=== PATIENT | female | born 1985 | race Caucasian/White ===

== ENCOUNTER 2017-10-25 22:34 | Emergency (ER) | payer MEDICAID ==
[~2017-10-25] VITALS: Ht 162.6 cm; Wt 129.9 kg
[2017-10-25 22:42] VITALS: BP 158/84
--- NOTE | 2017-10-25 22:47 | NUR ---
PT.AMBULATED TO ER BED 4
--- NOTE | 2017-10-25 22:55 | NUR ---
32YO F PATIENT PRESENTS TO ED WITH RIGHT FLANK PAIN X4DAYS WITH INCREASING PAIN THAT DOSE NOT RADIATE . DENIES N/V/D; SKIN IS PINK/WARM/DRY; AAOX4 WITH EVEN AND STEADY GAIT; LUNGS CLEAR BL; HR EVEN AND REGULAR; PT DENIES ANY FEVER, CP, SOB, OR COUGH AT THIS TIME; PATIENT STATES PAIN OF 10/10 AT THIS TIME; VSS; PATIENT POSITIONED FOR COMFORT; HOB ELEVATED; BEDRAILS UP X2; BED DOWN. ER MD MADE AWARE OF PT STATUS.
[2017-10-25] MEDS ORDERED: ONDANSETRON 4 MG/2 ML VIAL IVP ONE (23:00)
[2017-10-25] MEDS ORDERED: MORPHINE SULFATE 4 MG/ML SYR IVP ONE (23:00)
[2017-10-25] MEDS ORDERED: NACL 0.9% 1,000 ML IV ONE (23:00)
[2017-10-25] MEDS ORDERED: KETOROLAC 30 MG/ML VIAL IVP ONE (23:00)
--- NOTE | 2017-10-25 23:20 | NUR ---
PT TAKEN TO CT
[2017-10-25 23:24] LABS: BASOPHILS # (AUTO) 0.1 K/uL (0.00-0.22); BASOPHILS % (AUTO) 0.8 % (0.0-2.0); EOSINOPHILS # (AUTO) 0.3 K/uL (0-0.4); EOSINOPHILS % (AUTO) 3.2 % (0.0-4.0); HEMATOCRIT 36.4 % (36-48); HEMOGLOBIN 12.1 g/dL (12.0-16.0); LYMPHOCYTES # (AUTO) 2.2 K/uL (2.5-16.5); LYMPHOCYTES % (AUTO) 28.5 % (20.5-51.1); MEAN CORPUSCULAR HEMOGLOBIN 29 pg (27-31); MEAN CORPUSCULAR HGB CONC 33 g/dL (33-37); MEAN CORPUSCULAR VOLUME 85.7 fL (80-94); MONOCYTES # (AUTO) 0.7 K/uL (0.8-1.0); MONOCYTES % (AUTO) 9.5 % (1.7-9.3); NEUTROPHILS # (AUTO) 4.5 K/uL (1.8-7.7); PLATELET COUNT (AUTO) 240 K/uL (140-450); RED BLOOD CELL COUNT(AUTO) 4.25 MIL/uL (4.20-5.40); RED CELL DISTRIBUTION WIDTH 14.9 % (11.6-13.7); WHITE BLOOD COUNT (AUTO) 7.8 K/uL (4.8-10.8)
[2017-10-25 23:27] LABS: APPEARANCE,URINE CLEAR (CLEAR); BILIRUBIN,URINE NEGATIVE (NEGATIVE); BLOOD, URINE NEGATIVE (NEGATIVE); COLOR,URINE YELLOW (YELLOW); LEUKOCYTE ESTERASE ,URINE TRACE (NEGATIVE); NITRITE, URINE NEGATIVE (NEGATIVE); UGLUCOSE 2+ (NEGATIVE)
--- NOTE | 2017-10-25 23:31 | NUR ---
PT RETURN FROM CT
[2017-10-25 23:53] LABS: ANION GAP 13.6 (8-16); CARBON DIOXIDE 25.3 mmol/L (21-32); CREATININE 0.6 mg/dL (0.6-1.3); POTASSIUM 3.9 mmol/L (3.5-5.1)
[2017-10-25 23:59] LABS: ALBUMIN 3.5 g/dL (3.4-5.0); TOTAL BILIRUBIN 0.4 mg/dL (0.0-1.0)
[2017-10-26] LABS: RBC,URINE 0-5 (RARE) /HPF (0-5); WBC,URINE 0-5 (RARE) /HPF (0-5)
--- NOTE | 2017-10-26 00:26 | NUR ---
PT AWATING RESULT. RESTING IN NO APARENT DISTRESS. WILL CONTINUE TO MONITOR
--- NOTE | 2017-10-26 01:11 | NUR ---
Patient discharged with v/s stable. Written and verbal after care instructions given and explained. Patient alert, oriented and verbalized understanding of instructions. Ambulatory with steady gait. All questions addressed prior to discharge. ID band removed. Patient advised to follow up with PMD. Rx of VALIUM 5MG, NAPROSYN 500MG given. Patient educated on indication of medication including possible reaction and side effects. Opportunity to ask questions provided and answered.
[2017-10-26 01:16] VITALS: BP 105/47
== END 2017-10-26 01:11 | disposition home or self-care (01) ==
LOC: MED 22:34
DX: R10.9 Unspecified abdominal pain (principal)
CPT/HCPCS: 36415; 74176; 80053; 81001; 81025; 82948; 83690; 85025; 96361; 96374; 96375; 99285; J1885; J2270; J2405; J7030

== ENCOUNTER 2018-08-23 18:20 | Emergency (ER) | payer MEDICAID ==
[~2018-08-23] VITALS: Ht 162.6 cm; Wt 119.3 kg
[2018-08-23 18:55] VITALS: BP 139/42
--- NOTE | 2018-08-23 19:00 | NUR ---
VSS, AMB TO LOBBY.
[2018-08-23 20:21] LABS: BASOPHILS # (AUTO) 0.1 K/uL (0.00-0.22); EOSINOPHILS # (AUTO) 0.1 K/uL (0-0.4); EOSINOPHILS % (AUTO) 1.4 % (0.0-4.0); HEMOGLOBIN 13.4 g/dL (12.0-16.0); LYMPHOCYTES % (AUTO) 25.6 % (20.5-51.1); MEAN CORPUSCULAR HEMOGLOBIN 29 pg (27-31); MEAN CORPUSCULAR HGB CONC 34 g/dL (33-37); MEAN CORPUSCULAR VOLUME 85.8 fL (80-94); MONOCYTES # (AUTO) 0.6 K/uL (0.8-1.0); MONOCYTES % (AUTO) 8.4 % (1.7-9.3); NEUTROPHILS # (AUTO) 4.9 K/uL (1.8-7.7); NEUTROPHILS % (AUTO) 63.6 % (42.2-75.2); PLATELET COUNT (AUTO) 241 K/uL (140-450); RED BLOOD CELL COUNT(AUTO) 4.66 MIL/uL (4.20-5.40); RED CELL DISTRIBUTION WIDTH 14.6 % (11.6-13.7); WHITE BLOOD COUNT (AUTO) 7.7 K/uL (4.8-10.8)
[2018-08-23 20:41] LABS: ANION GAP 9.6 (8-16); CARBON DIOXIDE 28.9 mmol/L (21-32); CREATININE 0.6 mg/dL (0.6-1.3); POTASSIUM 3.5 mmol/L (3.5-5.1)
[2018-08-23 20:47] LABS: ALBUMIN 3.6 g/dL (3.4-5.0); TOTAL BILIRUBIN 0.7 mg/dL (0.0-1.0)
--- NOTE | 2018-08-23 21:03 | NUR ---
PT TAKEN TO BED
--- NOTE | 2018-08-23 21:04 | NUR ---
33/F CC: ABD PAIN VOMITTING 2 DAYS. A/O X 4. ABLE TO VERBALIZE NEEDS. STEADY GAIT. ABD PAIN 8/10. BOWEL SOUNDS ACTIVE X 4 QUADRANTS. ABD SOFT NONTENDER. FAMILY AT BEDSIDE. BED IN LOWEST POSITION. TOOK IBUPROFEN FOR PAIN. HX ASTHMA. WILL CONTINUE TO MONITOR.
[2018-08-23] MEDS ORDERED: PANTOPRAZOLE 40 MG TABEC PO ONE (21:55)
[2018-08-23] MEDS ORDERED: KETOROLAC 60 MG/2 ML VIAL IM ONE (21:55)
[2018-08-23] MEDS ORDERED: ONDANSETRON 4 MG ODT PO ONE (21:55)
[2018-08-23 23:00] VITALS: BP 139/42
--- NOTE | 2018-08-23 23:00 | NUR ---
Patient discharged with v/s stable. Written and verbal after care instructions given and explained. Patient alert, oriented and verbalized understanding of instructions. Ambulatory with steady gait. All questions addressed prior to discharge. ID band removed. Patient advised to follow up with PMD. Rx of TRAMADOL, given. Patient educated on indication of medication including possible reaction and side effects. Opportunity to ask questions provided and answered.
== END 2018-08-23 22:45 | disposition home or self-care (01) ==
LOC: MED 18:20
DX: K29.00 Acute gastritis without bleeding (principal); J45.909 Unspecified asthma, uncomplicated
CPT/HCPCS: 36415; 74022; 80053; 81025; 83690; 85025; 96372; 99284; J1885; Q0162

== ENCOUNTER 2020-11-23 18:56 | Emergency (ER) | payer MEDICAID ==
[~2020-11-23] VITALS: Ht 165.1 cm; Wt 119.3 kg
[2020-11-23 19:10] VITALS: BP 155/76
--- NOTE | 2020-11-23 19:10 | NUR ---
TO LOBBY A/W BED AMBULATORY
--- NOTE | 2020-11-23 19:20 | NUR ---
35/F WITH DAUGHTER AT BEDSICE C/O NO BOWEL MOVEMENT SINCE MONDAY, GENERALIZED ABD PAIN 02/26, BLOATEDNESS, AND NAUSEA SINCE MONDAY. PT DENIES ANY FEVER OR CHILLS. PMH: ASTHMA NKDA
[2020-11-23] MEDS ORDERED: ONDANSETRON 4 MG ODT PO ONE (20:05)
[2020-11-23] MEDS ORDERED: MAGNESIUM CITRATE 300 ML BTL PO ONE (20:05)
--- NOTE | 2020-11-23 20:26 | NUR ---
PT RETURN FROM XRAY TO ER BED 8
[2020-11-23] MEDS ORDERED: ONDA-24 SL (21:09)
[2020-11-23 21:19] VITALS: BP 155/76
== END 2020-11-23 21:19 | disposition home or self-care (01) ==
LOC: MED 18:56
DX: R14.0 Abdominal distension (gaseous) (principal); K59.00 Constipation, unspecified; R11.0 Nausea; J45.909 Unspecified asthma, uncomplicated; Z79.899 Other long term (current) drug therapy
CPT/HCPCS: 74018; 99283; Q0162

== ENCOUNTER 2020-11-24 23:40 | Emergency (ER) | payer MEDICAID ==
[~2020-11-24] VITALS: Ht 165.1 cm; Wt 119.3 kg
[~2020-11-24 23:40] MED LIST: ONDA-24 SL
[2020-11-24 23:46] VITALS: BP 125/80
--- NOTE | 2020-11-25 00:27 | NUR ---
Patient ambulated to ER bed 8 w/ steady gait.
--- NOTE | 2020-11-25 00:49 | NUR ---
Dr. Fatima examining patient.
[2020-11-25 01:16] LABS: APPEARANCE,URINE CLEAR (CLEAR); BILIRUBIN,URINE NEGATIVE (NEGATIVE); BLOOD, URINE NEGATIVE (NEGATIVE); COLOR,URINE YELLOW (YELLOW); LEUKOCYTE ESTERASE ,URINE NEGATIVE (NEGATIVE); NITRITE, URINE NEGATIVE (NEGATIVE); PH,URINE 6.5 (5.0-9.0); UGLUCOSE NEGATIVE (NEGATIVE)
[2020-11-25 01:16] LABS: BASOPHILS % (AUTO) 0.5 % (0.0-2.0); EOSINOPHILS # (AUTO) 0.3 K/uL (0-0.4); EOSINOPHILS % (AUTO) 3.3 % (0.0-4.0); HEMATOCRIT 38.2 % (36-48); HEMOGLOBIN 13.1 g/dL (12.0-16.0); LYMPHOCYTES # (AUTO) 2.5 K/uL (2.5-16.5); LYMPHOCYTES % (AUTO) 32.8 % (20.5-51.1); MEAN CORPUSCULAR HEMOGLOBIN 30 pg (27-31); MEAN CORPUSCULAR HGB CONC 34 g/dL (33-37); MEAN CORPUSCULAR VOLUME 86.1 fL (80-94); MONOCYTES # (AUTO) 0.7 K/uL (0.8-1.0); MONOCYTES % (AUTO) 9.6 % (1.7-9.3); NEUTROPHILS # (AUTO) 4.1 K/uL (1.8-7.7); NEUTROPHILS % (AUTO) 53.8 % (42.2-75.2); PLATELET COUNT (AUTO) 256 K/uL (140-450); RED BLOOD CELL COUNT(AUTO) 4.43 MIL/uL (4.20-5.40); RED CELL DISTRIBUTION WIDTH 13.8 % (11.6-13.7); WHITE BLOOD COUNT (AUTO) 7.7 K/uL (4.8-10.8)
[2020-11-25 01:26] LABS: ANION GAP 14.3 (8-16); CARBON DIOXIDE 25.3 mmol/L (21-32); CREATININE 0.7 mg/dL (0.6-1.3); POTASSIUM 3.6 mmol/L (3.5-5.1)
[2020-11-25 01:31] LABS: ALBUMIN 3.7 g/dL (3.4-5.0); TOTAL BILIRUBIN 0.8 mg/dL (0.0-1.0)
--- NOTE | 2020-11-25 01:43 | NUR ---
Ultrasound at bedside.
--- NOTE | 2020-11-25 05:15 | NUR ---
SEE PATIENT'S PAPER CHART FOR D/C INFORMATION AND COMPLETE ASSESMENT.
== END 2020-11-25 03:59 | disposition home or self-care (01) ==
LOC: MED 23:40
DX: A04.8 Other specified bacterial intestinal infections (principal); J45.909 Unspecified asthma, uncomplicated; Z79.899 Other long term (current) drug therapy
CPT/HCPCS: 36415; 76705; 80053; 81003; 82150; 83690; 85025; 99284

== ENCOUNTER 2021-12-13 11:01 | Emergency (ER) | payer MEDICAID ==
[~2021-12-13] VITALS: Ht 167.6 cm; Wt 113.4 kg
[~2021-12-13 11:01] MED LIST changes: +ONDA-188 SL; -ONDA-24 SL
[2021-12-13 11:08] VITALS: BP 128/66
[2021-12-13] MEDS ORDERED: KETOROLAC 30 MG/ML VIAL IM ONE (11:30)
[2021-12-13] MEDS ORDERED: DICL100G5 TP (11:37)
[2021-12-13] MEDS ORDERED: NAPR-1704 PO (11:37)
--- NOTE | 2021-12-13 11:53 | NUR ---
36 y/o female, c/o right knee pain post fall 2 weeks ago. pt states she dislocated her knee and was seen at an er in [place]. unable to get appointment with pcp soon, states she started having increased pain 2 days ago in the area of dislocation. pt estes sbrace on right leg and uses cructhes as directed. denies numbness, tingling to extremity. pmh: dislocated right knee nka med: tylenol (small relief)
[2021-12-13 12:17] VITALS: BP 128/66
--- NOTE | 2021-12-13 12:18 | NUR ---
Patient discharged with v/s stable. Written and verbal after care instructions given and explained. Patient alert, oriented and verbalized understanding of instructions. Ambulatory with cructhes with daughter to car. All questions addressed prior to discharge. ID band removed. Patient advised to follow up with PMD. Rx of diclofenac, naproxen (sent) given. Patient educated on indication of medication including possible reaction and side effects. Opportunity to ask questions provided and answered.
== END 2021-12-13 12:18 | disposition home or self-care (01) ==
LOC: MED 11:01
DX: S83.91XA Sprain of unspecified site of right knee, initial encounter (principal); J45.909 Unspecified asthma, uncomplicated; Z79.1 Long term (current) use of non-steroidal anti-inflammatories (NSAID); Z79.899 Other long term (current) drug therapy; W18.39XA Other fall on same level, initial encounter; Y92.89 Other specified places as the place of occurrence of the external cause; Y93.89 Activity, other specified; Y99.8 Other external cause status
CPT/HCPCS: 96372; 99283; J1885